=== PATIENT | male | born 2000 | race Hispanic/Latino ===

== ENCOUNTER 2021-06-18 15:32 | Emergency (ER) | payer SELFPAY ==
--- NOTE | 2021-06-18 20:15 | ER ---
Nurse's Notes [facility] Name: Clayton Navas Age: 21 yrs Sex: Male : 2000 Arrival Date: 06/18/2021 Time: 15:35 Bed 12 Private MD: Diagnosis: Sialoadenitis, unspecified-Parotidirtis Presentation: 06/18 15:47 Chief complaint: Patient states: facial swelling that began today; pt was seen at [address] and was diagnosed with "Parotitis" documentation states "possible obstruction of parotid duct" Pt states they gave him an IM injection of pain medication but does not know the name of it. Coronavirus screen: Vaccine status: Patient reports receiving the 2nd dose of the covid vaccine. Client denies travel out of the [place] in the last 14 days. Ebola Screen: Patient negative for fever greater than or equal to 101.5 degrees Fahrenheit, and additional compatible Ebola Virus Disease symptoms. Initial Sepsis Screen: Does the patient meet any 2 criteria? No. Patient's initial sepsis screen is negative. Does the patient have a suspected source of infection? No. Patient's initial sepsis screen is negative. Risk Assessment: Do you want to hurt yourself or someone else? Patient reports no desire to harm self or others. Onset of symptoms was June 18, 2021. 15:47 Method Of Arrival: Ambulatory [facility] 15:47 Acuity: CK 3 1 Triage Assessment: 15:53 General: Appears in no apparent distress. uncomfortable, Behavior is calm, cooperative. vg1 Pain: Complains of pain in right jaw and left jaw Pain currently is 0 out of 10 on a pain scale. at worst was 8 out of 10 on a pain scale. Historical: - Allergies: 15:53 No Known Allergies; vg1 - Home Meds: 15:53 None [Active]; vg1 - PMHx: 15:53 None; vg1 - PSHx: 15:53 None; vg1 - Immunization history:: Client reports receiving the 2nd dose of the Covid vaccine. - Social history:: Smoking status: Patient denies any tobacco usage or history of. - Family history:: not pertinent. Screenin:49 Abuse screen: Denies threats or abuse. Nutritional screening: No deficits noted. vg1 Tuberculosis screening: No symptoms or risk factors identified. Fall Risk None identified. Assessment: 19:49 General: Appears in no apparent distress. comfortable, Behavior is calm, cooperative. vg1 Pain: Complains of pain in left jaw and right jaw Pain currently is 5 out of 10 on a pain scale. Pain began earlier today. Neuro: Level of Consciousness is awake, alert, obeys commands, Oriented to person, place, time, situation. Cardiovascular: Patient's skin is warm and dry. Respiratory: Airway is patent Respiratory effort is even, unlabored. GI: No signs and/or symptoms were reported involving the gastrointestinal system. : No signs and/or symptoms were reported regarding the genitourinary system. EENT: No signs and/or symptoms were reported regarding the EENT system. Derm: Skin is intact, is healthy with good turgor. Musculoskeletal: Swelling present in left jaw and right jaw. Vital Signs: 15:47 BP 133 / 72; Pulse 87; Resp 16; Temp 97.7; Pulse Ox 100% ; Weight 81.65 kg; Height 5 vg1 ft. 8 in. (172.72 cm); Pain 8/10; 19:53 BP 124 / 71; Pulse 88; Resp 16; Pulse Ox 100% ; vg1 15:47 Body Mass Index 27.37 (81.65 kg, 172.72 cm) vg1 ED Course: 15:35 Patient arrived in ED. am2 15:53 Triage completed. vg1 15:53 Arm band placed on. vg1 19:18 Keli Uribe RN is Primary Nurse. vg1 19:38 Nagi Allen MD is Attending Physician. [facility] 19:49 Patient has correct armband on for positive identification. Bed in low position. Call vg1 light in reach. Side rails up X 1. 19:49 No provider procedures requiring assistance completed. vg1 20:11 Janette Rey MD is Referral Physician. swathi 20:29 Patient did not have IV access during this emergency room visit. vg1 Administered Medications: 20:29 Drug: Augmentin (Amoxicillin-Clavulanate) 875 mg Route: PO; vg1 20:29 Follow up: Response: Medication administered at discharge. vg1 20:29 Drug: Benadryl (diphenhydrAMINE) 50 mg Route: PO; vg1 20:29 Follow up: Response: Medication administered at discharge. vg1 20:29 Drug: Pepcid (famotidine) 40 mg Route: PO; vg1 20:29 Follow up: Response: Medication administered at discharge. vg1 Outcome: 20:15 Discharge ordered by MD. echevarria 20:29 Discharged to home ambulatory. vg1 20:29 Condition: stable 20:29 Discharge instructions given to patient, Instructed on discharge instructions, follow up and referral plans. medication usage, Demonstrated understanding of instructions, follow-up care, medications, Prescriptions given X 3. 20:30 Patient left the ED. vg1 Signatures: Nagi Allen MD MD cha Moreno, Amanda am2 Garcia, Victoria, RN RN vg1
--- NOTE | 2021-06-18 20:16 | EDPHYS ---
Physician Documentation [facility] Name: Clayton Navas Age: 21 yrs Sex: Male : 2000 Arrival Date: 06/18/2021 Time: 15:35 Bed 12 Private MD: VANIA Physician Nagi Allen HPI: 06/18 20:08 This 21 yrs old Male presents to ER via Ambulatory with complaints of Facial swathi Swelling. 20:08 The patient presents with swelling. The problem is located in the left jaw and right swathi jaw. Onset: The symptoms/episode began/occurred 6 hour(s) ago. Duration: The symptoms are continuous, but are steadily getting better. Modifying factors: The symptoms are alleviated by nothing, the symptoms are aggravated by chewing. Associated signs and symptoms: The patient has no apparent associated signs or symptoms. Severity of symptoms: At their worst the symptoms were mild, in the emergency department the symptoms are unchanged. The patient has not experienced similar symptoms in the past. Historical: - Allergies: 15:53 No Known Allergies; vg1 - Home Meds: 15:53 None [Active]; vg1 - PMHx: 15:53 None; vg1 - PSHx: 15:53 None; vg1 - Immunization history:: Client reports receiving the 2nd dose of the Covid vaccine. - Social history:: Smoking status: Patient denies any tobacco usage or history of. - Family history:: not pertinent. ROS: 20:08 Constitutional: Negative for fever, chills, and weight loss, Eyes: Negative for injury, swathi pain, redness, and discharge, Neck: Negative for injury, pain, and swelling, Cardiovascular: Negative for chest pain, palpitations, and edema, Respiratory: Negative for shortness of breath, cough, wheezing, and pleuritic chest pain, Abdomen/GI: Negative for abdominal pain, nausea, vomiting, diarrhea, and constipation, Back: Negative for injury and pain, : Negative for injury, bleeding, discharge, and swelling, MS/Extremity: Negative for injury and deformity, Skin: Negative for injury, rash, and discoloration, Neuro: Negative for headache, weakness, numbness, tingling, and seizure, Psych: Negative for depression, anxiety, suicide ideation, homicidal ideation, and hallucinations, Allergy/Immunology: Negative for hives, rash, and allergies, Endocrine: Negative for neck swelling, polydipsia, polyuria, polyphagia, and marked weight changes. 20:08 ENT: Positive for of the right ear, left ear, right jaw and left jaw. Exam: 20:08 Constitutional: This is a well developed, well nourished patient who is awake, alert, swathi and in no acute distress. Head/Face: Normocephalic, atraumatic. Eyes: Pupils equal round and reactive to light, extra-ocular motions intact. Lids and lashes normal. Conjunctiva and sclera are non-icteric and not injected. Cornea within normal limits. Periorbital areas with no swelling, redness, or edema. Neck: Trachea midline, no thyromegaly or masses palpated, and no cervical lymphadenopathy. Supple, full range of motion without nuchal rigidity, or vertebral point tenderness. No Meningismus. Chest/axilla: Normal chest wall appearance and motion. Nontender with no deformity. No lesions are appreciated. Cardiovascular: Regular rate and rhythm with a normal S1 and S2. No gallops, murmurs, or rubs. Normal PMI, no JVD. No pulse deficits. Respiratory: Lungs have equal breath sounds bilaterally, clear to auscultation and percussion. No rales, rhonchi or wheezes noted. No increased work of breathing, no retractions or nasal flaring. Abdomen/GI: Soft, non-tender, with normal bowel sounds. No distension or tympany. No guarding or rebound. No evidence of tenderness throughout. Back: No spinal tenderness. No costovertebral tenderness. Full range of motion. Male : Normal genitalia with no discharge or lesions. Skin: Warm, dry with normal turgor. Normal color with no rashes, no lesions, and no evidence of cellulitis. MS/ Extremity: Pulses equal, no cyanosis. Neurovascular intact. Full, normal range of motion. Neuro: Awake and alert, GCS 15, oriented to person, place, time, and situation. Cranial nerves II-XII grossly intact. Motor strength 5/5 in all extremities. Sensory grossly intact. Cerebellar exam normal. Normal gait. Psych: Awake, alert, with orientation to person, place and time. Behavior, mood, and affect are within normal limits. 20:08 Head/face: Noted is swelling, that is mild, of the right ear, left ear, right jaw and left jaw. 20:08 ENT: Mouth: is normal, no acute changes, Lips: normal, Oral mucosa: normal, Gums: normal with healthy appearance, Tongue: is normal, abscess, is not appreciated, drooling, is not appreciated. Vital Signs: 15:47 BP 133 / 72; Pulse 87; Resp 16; Temp 97.7; Pulse Ox 100% ; Weight 81.65 kg; Height 5 vg1 ft. 8 in. (172.72 cm); Pain 8/10; 19:53 BP 124 / 71; Pulse 88; Resp 16; Pulse Ox 100% ; vg1 15:47 Body Mass Index 27.37 (81.65 kg, 172.72 cm) vg1 MDM: 19:38 Patient medically screened. swathi 20:08 Differential diagnosis: dental abscess. Data reviewed: vital signs, nurses notes. Data swathi interpreted: bus monitor: rate is 88 beats/min, rhythm is regular, Pulse oximetry: on room air is 100 %. Counseling: I had a detailed discussion with the patient and/or guardian regarding: the historical points, exam findings, and any diagnostic results supporting the discharge/admit diagnosis, lab results, radiology results. Administered Medications: 20:29 Drug: Augmentin (Amoxicillin-Clavulanate) 875 mg Route: PO; vg1 20:29 Follow up: Response: Medication administered at discharge. vg1 20:29 Drug: Benadryl (diphenhydrAMINE) 50 mg Route: PO; vg1 20:29 Follow up: Response: Medication administered at discharge. vg1 20:29 Drug: Pepcid (famotidine) 40 mg Route: PO; vg1 20:29 Follow up: Response: Medication administered at discharge. vg1 Disposition Summary: 06/18/21 20:15 Discharge Ordered Location: Home swathi Problem: new swathi Symptoms: have improved swathi Condition: Stable swathi Diagnosis - Sialoadenitis, unspecified - Parotidirtis swathi Followup: swathi - With: Private Physician - When: 2 - 3 days - Reason: Recheck today's complaints, Continuance of care, Re-evaluation by your physician Followup: swathi - With: Janette Rey MD - When: 2 - 3 days - Reason: Recheck today's complaints, Re-evaluation by your physician Discharge Instructions: - Discharge Summary Sheet swathi - Parotitis swathi - Salivary Gland Infection swathi - Parotitis, [id number] [facility] Forms: - Medication Reconciliation Form swathi - Thank You Letter swathi - Antibiotic Education swathi - Prescription Opioid Use [facility] Prescriptions: - Augmentin 875-125 mg Oral Tablet - take 1 tablet by ORAL route every 12 hours for 10 days; 20 tablet; Refills: 0, [facility] Product Selection Permitted - Benadryl 25 mg Oral Capsule - take 50 capsule by ORAL route every 6 hours As needed; 45 tablet; Refills: 0, [facility] Product Selection Permitted - Pepcid 20 mg Oral Tablet - take 1 tablet by ORAL route every 12 hours for 15 days; 30 tablet; Refills: 0, [facility] Product Selection Permitted Signatures: Nagi Allen MD MD cha Garcia, Victoria RN RN vg1
[2021-06-18] MEDS ORDERED: DIPHENHYDRAMINE 25 MG TAB/CAP ONE (20:17)
[2021-06-18] MEDS ORDERED: FAMOTIDINE 20 MG TAB ONE (20:18)
[2021-06-18] MEDS ORDERED: AMOX/K CLAV 875 MG TAB ONE (20:18)
[2021-06-18 20:47] VITALS: TEMP 97.7; O2SAT 100
[2021-06-18 20:48] VITALS: BP 124/71
== END 2021-06-18 20:30 | disposition home or self-care (01) ==
LOC: ER 15:32
DX: K11.20 Sialoadenitis, unspecified (principal)
CPT/HCPCS: 99283